=== PATIENT | female | born 1965 | race Caucasian/White ===

== ENCOUNTER 2021-02-11 19:49 | Emergency (ER) | payer OTHER ==
[2021-02-11 19:56] VITALS: TEMP 98
--- NOTE | 2021-02-11 20:59 | ED ---
Extremity Problem HPI - General Chief complaint: Extremity Problem,Nontraumatic Stated complaint: Shoulder Pain, Swollen Wrist Time Seen by Provider: 02/11/21 20:32 Source: patient, family, RN notes reviewed Mode of arrival: ambulatory - History of Present Illness Initial comments: Patient is a 55-year-old female that presents to emergency department complaining of bilateral shoulder and wrist pain. She denied any injury or trauma. She noted that she does have a history of some neck tension and pain with minimal numbness and tingling down her upper extremities that comes and goes. She denied any numbness and tingling also in bed. Her states that she has significant swelling over her wrists for her. She states that she was unable to move her shoulders by herself, but was moving them okay on the exam or interview. Patient was a frail-looking 55-year-old that was in no apparent distress or pain. She denied chest pain shortness of breath headache nausea vomiting diarrhea comes patient fever fatigue chills. - Related Data Allergies Allergy/AdvReac Type Severity Reaction Status Date / Time atropine [From ] Allergy Confusion Verified 02/11/21 19:57 hyoscyamine [From ] Allergy Confusion Verified 02/11/21 19:57 Penicillins Allergy Anaphylaxis Verified 02/11/21 19:57 phenobarbital [From ] Allergy Confusion Verified 02/11/21 19:57 scopolamine [From ] Allergy Confusion Verified 02/11/21 19:57 Review of Systems ROS Statement: Those systems with pertinent positive or pertinent negative responses have been documented in the HPI. ROS Other: All systems not noted in ROS Statement are negative. Past Medical History History of Any Multi-Drug Resistant Organisms: None Reported Past Surgical History: Orthopedic Surgery Additional Past Surgical History / Comment(s): hysterectomy Past Psychological History: No Psychological Hx Reported Smoking Status: Never smoker Past Alcohol Use History: None Reported Past Drug Use History: None Reported General Exam General appearance: alert, in no apparent distress Head exam: Present: atraumatic, normocephalic, normal inspection Eye exam: Present: normal appearance, PERRL, EOMI. Absent: scleral icterus, conjunctival injection, periorbital swelling ENT exam: Present: normal exam, mucous membranes moist Neck exam: Present: normal inspection. Absent: tenderness, meningismus, lymphadenopathy Respiratory exam: Present: normal lung sounds bilaterally. Absent: respiratory distress, wheezes, rales, rhonchi, stridor Cardiovascular Exam: Present: regular rate, normal rhythm, normal heart sounds. Absent: systolic murmur, diastolic murmur, rubs, gallop, clicks GI/Abdominal exam: Present: soft, normal bowel sounds. Absent: distended, tenderness, guarding, rebound, rigid Extremities exam: Present: normal inspection, normal capillary refill, other (Decreased muscle tone for patient's age. No swelling of any joints in the upper extremity. Positive Vikas's test right wrist). Absent: full ROM (Decreased range of motion due to patient uncooperative this.), tenderness, pedal edema, joint swelling, calf tenderness Neurological exam: Present: alert, oriented X3, CN II-XII intact Psychiatric exam: Present: normal affect, normal mood Skin exam: Present: warm, dry, intact, normal color. Absent: rash Course Vital Signs 02/11/21 19:51 Temperature 98 F Pulse Rate 84 Respiratory 18 Rate Blood Pressure 116/62 O2 Sat by Pulse 100 Oximetry Medical Decision Making - Medical Decision Making 55-year-old female complaining of bilateral shoulder and wrist pain. X-rays of the bilateral shoulders and bilateral wrists ordered. Patient declined the need for any pain medication. Case discussed with Dr. Gonzalez, patient can discharge home. - Radiology Data Radiology results: report reviewed, image reviewed Shoulder: Negative bilateral shoulder exam. Normal joint spaces. Wrist x-ray: Moderate osteoarthritis at the base of the right thumb. No fracture seen. No significant abnormality of the left wrist. Disposition Clinical Impression: Bilateral shoulder pain, Bilateral wrist pain, Osteoarthritis Disposition: HOME SELF-CARE Condition: Stable Instructions (If sedation given, give patient instructions): Osteoarthritis (ED) Additional Instructions: Please return to the Emergency Department if symptoms worsen or any other concerns. Follow-up with primary care in 2-4 days. Follow-up with orthopedics on an outpatient basis if symptoms continue Take [id number] pain medications for pain control. Possibly get referral to a rn resource nurse for connective tissue disorders on an outpatient basis. Is patient prescribed a controlled substance at d/c from ED?: No Referrals: Bakari El MD [Primary Care Provider] - 1-2 days Time of Disposition: 21:41
--- NOTE | 2021-02-11 21:18 | XR ---
EXAMINATION TYPE: XR wrist complete BILATERAL DATE OF EXAM: 02/11/2021 COMPARISON: NONE HISTORY: Pain and swelling TECHNIQUE: 4 views each wrist FINDINGS: There is some narrowing and spurring at the right wrist at the first carpometacarpal joint. I see no fracture nor dislocation. The metacarpals are intact. The distal radius and ulna appear int act. IMPRESSION: Moderate osteoarthritis at the base of the right thumb. No fracture seen. No significant abnormality of the left wrist.
--- NOTE | 2021-02-11 21:19 | XR ---
EXAMINATION TYPE: XR shoulder complete BILAT DATE OF EXAM: 02/11/2021 COMPARISON: NONE HISTORY: Shoulder pain TECHNIQUE: 3 views each shoulder FINDINGS: I see no fracture nor dislocation. Joint spaces are normal. There are no pathologic calcifi cations. Soft tissues appear normal. The upper ribs appear intact. IMPRESSION: Negative bilateral shoulder exam. Normal joint spaces.
[2021-02-11 22:08] VITALS: BP 112/69; PULSE 80; RESP 16
== END 2021-02-11 22:08 | disposition home or self-care (01) ==
LOC: EC 19:49
DX: M19.031 Primary osteoarthritis, right wrist (principal); M19.032 Primary osteoarthritis, left wrist; M25.511 Pain in right shoulder; M25.512 Pain in left shoulder
CPT/HCPCS: 99283

== ENCOUNTER → 2021-08-30 | Outpatient (CLI) | payer OTHER ==
--- NOTE | 2021-08-30 10:56 | NM ---
EXAMINATION TYPE: NM stress cardiolite complete DATE OF EXAM: 08/30/2021 COMPARISON: NONE HISTORY: Palpitations TECHNIQUE: After the intravenous administration of 10.5 mCi Tc 99m Sestamibi - Rest images obtained 45 minutes post injection. The patient exercised using a HOLLIE protocol and 1 minute prior to peak exercise was injected with 24 mCi Tc 99m Sestamibi - Stress images obtained 15 minutes post injection . FINDINGS: Targeted heart rate was achieved during performance of the study. Review of stress and rest SPECT sonal ges demonstrates no distinct perfusion abnormality. Gated analysis shows normal wall motion with an estimated left ventricular ejection fraction of 68 %. IMPRESSION: No scintigraphic evidence for reversible ischemia. Consider echocardiographic correlation for elevate d ejection fraction
--- NOTE | 2021-08-30 11:38 | P.STRESS ---
- Stress Test Note Stress Test Results/Findings: Exam Performed: NM stress cardiolite complete Exam Date: 08/30/21 Reason for Exam: PALPITATIONS Height: 5 ft 7 in Weight: 73 kg Protocol: CARDIOLITE STRESS Stage: 3 Duration of Exercise: 8:30 Resting Heart Rate: 73 Resting Blood Pressure: 115/76 Maximum Achieved Heart Rate: 152 Maximum Achieved Blood Pressure: 159/76 85% PMHR: 139 100% PMHR: 163 METS: 10.3 Technologist Comment: Stress Test Results/Findings: Patient underwent exercise stress Cardiolite with a Memo protocol treadmill stress test. Patient exercised into Stage 3 for a total of 8 minutes and 30 seconds reaching a total of 10.3 METS. Patient's maximum heart rate was 152 which represented 93% age-predicted maximum heart rate. Stress EKG findings: At baseline patient's EKG showed normal sinus rhythm, normal axis, nonspecific 0.[address] depressions in the inferior and lateral leads, rare PVCs. With exercise there is no significant change from baseline. Conclusions: 1. Nondiagnostic EKG portion secondary to baseline EKG abnormalities. 2. Good exercise capacity. 3. Nuclear portion to be reported separately.
== END | disposition home or self-care (01) ==
LOC: RADNMMAIN 08:17
PROVIDERS: ATTEND Internal Medicine Cardiovascular Disease
DX: R00.2 Palpitations (principal)
CPT/HCPCS: 93017; 78452; A9500

== ENCOUNTER → 2021-10-01 | Outpatient (CLI) | payer OTHER ==
--- NOTE | 2021-10-01 16:55 | CONS ---
CONSULTATION REASON FOR CONSULTATION: "Lacking a lot of sleep." This is a 55-year-old female patient. Her main complaint is that she is is lacking a lot of sleep. She has an issue with chronic pain, rheumatoid arthritis, and the patient has a current Inflectra infusion every 8 weeks and hydrochloroquine. She takes RA treatment and despite that she is still having chronic body aches and pains. This makes her quite uncomfortable at night and she has to wake up on multiple occasions. She goes to bed around 10 p.m., wakes up at around 2:30 a.m. in the morning and tries to go back to bed. She is back and forth sleeping between 2:30 a.m. and 4 a.m. Ultimately she will get out of bed around 4 a.m. in the morning. She is averaging around 5 hours of sleep. At times she takes naps during the day. She is excessively fatigued. Limited sleepiness. No snoring. She denies that she quits breathing during sleep. No insomnia. No choking. No nocturia. No grinding of the teeth. No sleepwalking. No anxiety or panic attacks. No palpitations or heartburn overnight. No gasping for air overnight. No restlessness in the lower extremities, although she has a chronic shooting pain in left ankle with a previous fracture involving the joint. No substance abuse. No excessive ingestion of caffeinated beverages. Her weight has been stable; in fact, she is down by around 10 pounds since her last evaluation. She sleeps on her side mostly and she has no sleep paralysis, hallucinations or cataplexy. Tenmile Score is 7. PAST MEDICAL HISTORY: Bronchial asthma, rheumatoid arthritis and chronic pain. SURGICAL HISTORY: Surgical history includes complete hysterectomy, toe, meniscus and broken ankle with ORIF and insertion of joanie in 2016. DRUG ALLERGIES: IBUPROFEN AND PENICILLINS AND . MEDICATIONS: Outpatient medications include Inflectra infusion every 8 weeks, Breztri inhalers for bronchial asthma, and hydrochloroquine for RA 100 mg twice a day. SOCIAL HISTORY: Nonsmoker. No history of alcohol. No history of IV drugs. FAMILY HISTORY: Negative for sleep apnea. REVIEW OF SYSTEMS: Fourteen-point review of systems was done. Positive findings are all mentioned in history of present illness. PHYSICAL EXAMINATION: VITAL SIGNS: BP is 110/69, pulse 75, respirations 16, temperature 97.2, saturation 95% on room air. Height is 5 feet 6 inches, weight is 161, BMI is 25.4. Tenmile score is 7. Neck size 13-1/4 inches. GENERAL APPEARANCE: Calm, comfortable. HEAD: Atraumatic, normocephalic. Neck is supple. No JVD. No goiter or neck masses. Mallampati class III. LUNGS: Clear to auscultation. Heart sounds are regular rate and rhythm. Normal S1, S2. No S3, S4. No murmurs. ABDOMEN: Soft, nontender. No organomegaly. EXTREMITIES: Some joint deformities related to previous rheumatoid arthritis. No active swelling at this point in time. IMPRESSION: 1. Chronic fatigue and sleep fragmentation, most likely secondary to her underlying chronic pain and rheumatoid arthritis. Tenmile Score is 7. Limited sleepiness is present, although the majority of her complaint is sleep fragmentation and chronic fatigue. 2. Rheumatoid arthritis. 3. Chronic pain. 4. Bronchial asthma. PLAN: Underlying sleep breathing disorder is unlikely. It is worthwhile to do a full polysomnogram to assess the patient's sleep quality, her ability to maintain sleep and the extent of sleep fragmentation. This will be also a good opportunity to assess for any periodic limb movement activity. The sleep quality will be evaluated. Sleep architecture will be evaluated. My impression is that the patient's sleep fragmentation and lack of sleep are essentially due to chronic pain and comorbid conditions. Recommend more aggressive treatment of pain and treatment of rheumatoid arthritis. Final recommendations will be made following her sleep study, which will be done hopefully within the next few weeks. MMODL / IJN: [id number] /
== END ==
LOC: SLEEP 15:48
PROVIDERS: ATTEND Internal Medicine Critical Care Medicine
DX: G47.8 Other sleep disorders (principal); M06.9 Rheumatoid arthritis, unspecified; J45.909 Unspecified asthma, uncomplicated; Z88.0 Allergy status to penicillin; Z88.6 Allergy status to analgesic agent; Z88.8 Allergy status to other drugs, medicaments and biological substances
CPT/HCPCS: 99211

== ENCOUNTER → 2022-04-30 | Outpatient (CLI) | payer OTHER ==
--- NOTE | 2022-04-30 13:52 | CT ---
EXAMINATION TYPE: CT chest wo con DATE OF EXAM: 04/30/2022 COMPARISON: HISTORY: ILD CT DLP: 142 mGycm, Automated exposure control for dose reduction was used. CONTRAST: None TECHNIQUE: Axial images were obtained at 1 mm thick sections at 10 mm intervals. This will limit po rtions of the examination which may not be visualized within the [id number]. Images were obtained in the prone and supine views. FINDINGS: Portion of the thyroid visualized is normal. No suspicious lung nodules or focal infiltrat es are present. Some scarring may be at the right apex. There is a benign-appearing calcification wit hin the mid right lung. No enlarged mediastinal or hilar adenopathy is evident. Some calcified right hilar adenopathy may be present The ascending aorta diameter at the level of the main pulmonary artery is 3.3 cm. The main pulmonary artery diameter at the bifurcation is 2.[address] sections are obtained through the upper abdomen. There is a 1.5 cm splenic artery aneurysm near the tail of the pancreas. IMPRESSIONS: 1. No suspicious acute changes high-resolution CT chest. 2. 1.5 cm splenic artery aneurysm
== END | disposition home or self-care (01) ==
LOC: RADCTMAIN 07:08
PROVIDERS: ATTEND Internal Medicine Critical Care Medicine
DX: I72.8 Aneurysm of other specified arteries (principal)
CPT/HCPCS: 71250

== ENCOUNTER → 2024-08-09 | Outpatient (CLI) | payer BC ==
--- NOTE | 2024-08-09 14:49 | XR ---
EXAMINATION TYPE: XR hand complete bilateral DATE OF EXAM: 08/09/2024 COMPARISON: Wrist radiographs 02/11/2021 HISTORY: 58-year-old female M35.00 M06.9 M85.80 I72.8 TECHNIQUE: 3 views each side FINDINGS: Left: There is mild degenerative spurring at the first CMC joint and also at the second and fifth DIP joint s. No acute fracture, subluxation, dislocation is seen. No marginal erosions or soft tissue calcifica tions. Some underlying osteopenia. Right: Severe degenerative change first CMC joint and moderate at both second and third DIP joints. No acute fracture, subluxation, dislocation. No marginal erosions or soft tissue calcifications. Osteopenia. IMPRESSION: 1. Left hand: Mild osteoarthritic change at the base of the thumb and within the second and fifth MP joints. Osteopenia. No acute osseous abnormality seen. 2. Right hand: More severe, end-stage degenerative change at the base of the thumb and moderate at th e second and third DIP joints. Osteopenia. No acute osseous abnormality seen.
--- NOTE | 2024-08-09 14:50 | XR ---
EXAMINATION TYPE: XR chest 2V DATE OF EXAM: 08/09/2024 COMPARISON: 04/18/2022 HISTORY: 58-year-old female I 72.8, splenic artery aneurysm TECHNIQUE: Frontal and lateral views FINDINGS: The cardiomediastinal silhouette, aorta, and pulmonary vasculature are within normal limits. Calcifie d granuloma redemonstrated at the right midlung. There is mild hyperinflation. Otherwise, lungs and p leural spaces are clear. IMPRESSION: Mild hyperinflation may relate to depth of inspiration or underlying emphysema. Old calcified granulo ma in the right midlung. Otherwise, no acute process seen.
--- NOTE | 2024-08-09 15:08 | XR ---
EXAMINATION TYPE: XR foot complete bilateral (3 views each side) DATE OF EXAM: 08/09/2024 Comparison: None Clinical History: 58-year-old female M35.00 M06.9 M85.80 I72.8 Findings: Right: Suspect underlying os intermetatarseum on the frontal view. Possible focal chronic juxta-articular er osion along the medial aspect of the first proximal phalangeal head. No soft tissue calcifications ar e seen. No acute fracture, subluxation, dislocation. Left: Mild degenerative change first MTP joint. Osteopenia. No acute fracture, subluxation, or dislocation. Small plantar heel spur. Impression: 1. Right: Possible focal chronic juxta articular erosion along the medial aspect of the first proxima l phalangeal head versus sequela of prior injury. Query any previous episodes of gout to this locatio n. No acute osseous anomaly seen. 2. Left: Mild first MTP joint OA. Osteopenia. Small plantar heel spur. No acute osseous abnormality s een.
[2024-08-09 15:14] LABS: ALT 45 U/L (8-44); AST 34 U/L (13-35); Albumin 4.6 g/dL (3.8-4.9); Albumin/Globulin Ratio 1.84 Ratio (1.60-3.17); Alkaline Phosphatase 105 U/L (41-126); BUN/Creat Ratio 17.75 Ratio (12.00-20.00); Basophils # (A) 0.05 X 10*3/uL (0.00-0.10); Basophils % (A) 0.6 %; Blood Urea Nitrogen 14.2 mg/dL (9.0-27.0); Calcium 10.2 mg/dL (8.7-10.3); Carbon Dioxide 25.6 mmol/L (21.6-31.8); Chloride 103 mmol/L (96-109); Eosinophils # (A) 0.16 X 10*3/uL (0.04-0.35); Globulin 2.5 g/dL (1.6-3.3); Glucose 97 mg/dL (70-110); HCT 44.2 % (37.2-46.3); HGB 14.6 g/dL (12.0-15.0); Lymphocytes # (A) 1.74 X 10*3/uL (0.90-5.00); Lymphocytes % (A) 22.1 %; MCH 30.9 pg (27.0-32.0); MCV 93.4 FL (80.0-97.0); Mean Platelet Volume 9.5 FL (9.5-12.2); Monocytes # (A) 0.71 X 10*3/uL (0.20-1.00); NRBC Per 100 WBC 0 X 10*3/uL (0.00-0.01); Neutrophils # (A) 5.16 X 10*3/uL (1.80-7.70); Neutrophils % (A) 65.8 %; Platelet Count 349 X 10*3/uL (140-440); Potassium 4.3 mmol/L (3.5-5.5); RBC 4.73 X 10*6/uL (4.10-5.20); RDW 11.9 % (11.5-14.5); Sodium 141 mmol/L (135-145); Total Bilirubin 0.5 mg/dL (0.3-1.2); Total Protein 7.1 g/dL (6.2-8.2); WBC 7.86 X 10*3/uL (4.50-10.00)
[2024-08-09 15:28] LABS: Rheumatoid Factor, Qnt 383 IU/mL (0-15)
[2024-08-09 15:30] LABS: Hepatitis B Surface AB- Quant 3.5 mIU/mL
[2024-08-09 15:33] LABS: Erythrocyte Sedimentation Rate 13 mm/Hr (0-30)
[2024-08-09 15:34] LABS: C Reactive Protein <0.30 mg/dL (0.00-0.80)
[2024-08-09 17:45] LABS: Hepatitis B Core IgM Nonreactive (Nonreactive); Hepatitis B Surface Antigen Nonreactive (Nonreactive); Hepatitis C IgG Antibody Nonreactive (Nonreactive)
[2024-08-10 02:09] LABS: Cyclic Citrull Pep IgG Unit 37.5 U/mL (<=3.9); Cyclic Citrullinated Pep IgG Positive (Negative)
[2024-08-10 08:03] LABS: HLA B27 NEGATIVE
== END | disposition home or self-care (01) ==
LOC: LABWHC1 11:34
PROVIDERS: ATTEND Internal Medicine Rheumatology
DX: M35.00 Sjogren syndrome, unspecified (principal); M85.80 Other specified disorders of bone density and structure, unspecified site; I72.8 Aneurysm of other specified arteries; M06.9 Rheumatoid arthritis, unspecified
CPT/HCPCS: 36415; 71046; 80053; 83520; 85025; 85652; 86038; 86140; 86200; 86235; 86431; 86480; 86704; 86705; 86706; 86803; 86812; 87340